=== PATIENT | female | born 1960 | race Asian ===

== ENCOUNTER 2020-08-09 01:51 | Inpatient (IN) | payer OTHER ==
[~2020-08-09] VITALS: Ht 157.5 cm; Wt 52.2 kg
[2020-08-09 01:52] VITALS: Ht 157.5 cm; Wt 52.2 kg
[2020-08-09 02:42] LABS: microscopic required? NO
[2020-08-09 02:51] LABS: urine erythrocyte NEGATIVE (NEGATIVE)
[2020-08-09 02:56] LABS: BASOPHIL % 0.4 % (0-2); PLATELET COUNT 273 x10^3mcL (130-400); RED CELL DISTRIBUTION WIDTH 13.6 % (11.5-14.5)
[2020-08-09 02:59] LABS: CALCIUM 9.1 mg/dL (8.5-10.1); CARBON DIOXIDE 29.2 mmol/L (21-32); CHLORIDE SERUM 101 mmol/L (98-107); CREATININE SERUM 0.8 mg/dL (0.6-1.0); GFR1 > 60 mL/min; GLUCOSE SERUM 159 mg/dL (74-106); POTASSIUM SERUM 3.6 mmol/L (3.5-5.1); SODIUM SERUM 139 mmol/L (136-145)
[2020-08-09 03:03] LABS: ALKALINE PHOSPHATASE 96 U/L (46-116); ALT/SGPT 38 U/L (14-59); AST/SGOT 32 U/L (15-37); BILIRUBIN TOTAL 0.42 mg/dL (0.20-1.00); LIPASE 155 IU/L (73-393); TOTAL PROTEIN, SERUM 7.9 g/dL (6.4-8.2)
[2020-08-09 04:55] LABS: PHOSPHOROUS 3.4 mg/dL (2.5-4.9)
[2020-08-09 05:05] LABS: T3 TOTAL 1.39 ng/mL
[2020-08-09] MEDS ORDERED: AMLODIPINE BESYL5 M2 PO (05:08)
[2020-08-09 05:10] LABS: FREE T4 1.36 ng/dL (0.76-1.46); FREE THYROXINE INDEX 4.9 ug/dL (1.4-4.5); T4(THYROXINE) 12.5 ug/dL (4.7-13.3)
[2020-08-09 09:28] VITALS: BP 170/95
[2020-08-09 10:34] VITALS: BP 135/80
[2020-08-09 12:33] VITALS: BP 147/78
[2020-08-09] MEDS ORDERED: ACID REDUCER20 MG PO (16:59)
[2020-08-09] MEDS ORDERED: CARAFATE1 GM PO (17:00)
[2020-08-09] MEDS ORDERED: TUMS CH (17:02)
[2020-08-09] MEDS ORDERED: ZOF4 PO (17:03)
[2020-08-09 17:33] VITALS: BP 141/81
[2020-08-09 17:41] VITALS: BP 141/81
== END 2020-08-09 18:26 | disposition home or self-care (01) | DRG 392 ==
LOC: ED 01:51 → MU 04:10
PROVIDERS: Emergency Medicine; ADMIT Family Medicine; ATTEND Family Medicine
DX: K29.00 Acute gastritis without bleeding (principal); I10 Essential (primary) hypertension; D72.829 Elevated white blood cell count, unspecified; Z90.710 Acquired absence of both cervix and uterus; Z20.828 Contact with and (suspected) exposure to other viral communicable diseases
CPT/HCPCS: 84439; 87804; C9113; G0378; J2270; J2405; J2765; J3010; J7030